=== PATIENT | male | born 1965 | race Caucasian/White ===

== ENCOUNTER 2019-01-05 09:50 | Emergency (ER) | payer SELFPAY ==
[~2019-01-05] VITALS: Ht 182.9 cm; Wt 109.0 kg
[2019-01-05] MEDS ORDERED: HYDROcodone/acetaminophen 10/325mg tab PO ONE (11:35)
[2019-01-05] MEDS ORDERED: ketorolac trometh. 30mg/ml inj. IM ONE (11:45)
[2019-01-05] MEDS ORDERED: IBUP-1986 PO (12:03)
[2019-01-05 12:14] VITALS: BP 187/122
== END 2019-01-05 12:16 | disposition home or self-care (01) ==
LOC: ER 09:51
DX: M25.462 Effusion, left knee (principal); D16.22 Benign neoplasm of long bones of left lower limb; I10 Essential (primary) hypertension; Z98.890 Other specified postprocedural states; Z60.2 Problems related to living alone; W18.49XA Other slipping, tripping and stumbling without falling, initial encounter; Y93.01 Activity, walking, marching and hiking; Y92.89 Other specified places as the place of occurrence of the external cause; Y99.8 Other external cause status
CPT/HCPCS: 29505; 73564; 96372; 99284; J1885